=== PATIENT | male | born 1965 | race Caucasian/White ===

== ENCOUNTER 2019-02-09 14:31 | Emergency (ER) | payer BC ==
[2019-02-09] MEDS: ASPIRIN 81 MG TAB PO (15:22)
[2019-02-09] MEDS: SOD CHLORIDE 0.9% 1,000 ML IV (15:23)
[2019-02-09 15:24] LABS: ADD MAN DIFF? NO
[2019-02-09 15:29] LABS: BASOPHIL # 0.1 10^3/ul (0.0-0.1); EOSINOPHILS # 0.1 10^3/ul (0.0-0.5); EOSINOPHILS % 1.4 % (0.0-7.0); HEMATOCRIT 44.9 % (42.0-52.0); HEMOGLOBIN 14.6 g/dl (14.0-18.0); LYMPHOCYTES # 1.7 10^3/ul (0.8-2.9); LYMPHOCYTES % 19.9 % (15.0-51.0); MEAN CORPUSCULAR HGB CONC 32.5 g/dl (32.0-37.0); MEAN CORPUSCULAR VOLUME 92.2 fl (82.0-101.0); MEAN PLATELET VOLUME 10.4 fl (7.4-10.4); MONOCYTE # 0.7 10^3/ul (0.3-0.9); MONOCYTES % 8.3 % (0.0-11.0); NEUTROPHIL # 5.7 10^3/ul (1.6-7.5); NEUTROPHILS % 68.6 % (39.0-77.0); PLATELET COUNT 292 10^3/UL (140-415); RED BLOOD COUNT 4.87 10^6/ul (4.70-6.10); RED CELL DISTRIBUTION WIDTH 12.9 % (11.5-14.5)
[2019-02-09 15:29] LABS: WHITE BLOOD COUNT 8.4 10^3/ul (4.8-10.8)
[2019-02-09 15:47] LABS: ANION GAP 10 (5-13); BLOOD UREA NITROGEN 17 mg/dl (7-20); CALCIUM 9.8 mg/dl (8.4-10.2); CARBON DIOXIDE 24 mmol/L (21-31); CHLORIDE 105 mmol/L (97-110); Estimated GFR > 60 mL/min (>60); GLUCOSE 98 mg/dl (70-220); POTASSIUM 4.1 mmol/L (3.5-5.1); SODIUM 139 mmol/L (135-144)
== END 2019-02-09 17:43 | disposition home or self-care (01) ==
LOC: E/R 14:31
DX: R20.0 Anesthesia of skin (principal); R51 Headache
CPT/HCPCS: 36415; 70450; 80048; 85025; 93005; 99285-25